=== PATIENT | male | born 1985 | race Caucasian/White ===

== ENCOUNTER 2016-09-21 13:06 | Emergency (ER) | payer MEDICAID ==
[2016-09-21 13:20] VITALS: BP 98/65; PULSE 64; RESP 16; TEMP 98.1; O2SAT 98
--- NOTE | 2016-09-21 13:31 | EDPHY ---
H & P Stated Complaint: Left great toe--discolored x 3 days--pt concerned for infection Time Seen by Provider: 09/21/16 13:23 HPI/ROS: Chief Complaint: Erythema lateral aspect left great toe HPI: The patient presents to the ED with mild erythema on the lateral aspect of his left great toe. The patient has a history of a plantar wart to this area. He noticed mild erythema over the past several days. He reports some mild associated paresthesia. The patient denies any numbness or additional neurologic complaints. Patient has no additional acute medical complaints. REVIEW OF SYSTEMS: Neuro: no headache, numbness, weakness Musculoskeletal: as above Skin: As above Source: Patient Exam Limitations: No limitations - Personal History Current Tetanus/Diphtheria Vaccine: Unsure Current Tetanus Diphtheria and Acellular Pertussis (TDAP): Unsure - Medical/Surgical History Hx Asthma: No Hx Chronic Respiratory Disease: No Hx Diabetes: No Hx Cardiac Disease: No Hx Renal Disease: No Hx Cirrhosis: No Hx Alcoholism: No Hx HIV/AIDS: No Hx Splenectomy or Spleen Trauma: No Other PMH: denies - Social History Smoking Status: Current every day smoker - Physical Exam Exam: General: No acute distress Left foot: Erythema noted to the lateral aspect of the left great toe, no significant fluctuance, area of hyperkeratosis consistent with wart Neuro: Patient reports decreased sensation to light touch throughout the left great toe and left 2nd toe. Vascular: Patient has normal capillary refill noted throughout the left lower extremity Constitutional: Initial Vital Signs Temperature (C) 36.7 C 09/21/16 13:17 Heart Rate 64 09/21/16 13:17 Respiratory Rate 16 09/21/16 13:17 Blood Pressure 98/65 L 09/21/16 13:17 O2 Sat (%) 98 09/21/16 13:17 O2 Delivery Mode Room Air Allergies/Adverse Reactions: No Known Allergies Allergy (Unverified 09/21/16 13:15) Home Medications: Medication Instructions Recorded Cephalexin [Keflex] 500 mg PO TID #21 cap 09/21/16 METHADONE HCL 09/21/16 Medical Decision Making ED Course/Re-evaluation: The patient will be started on Keflex for a very mild cellulitis. He is advised to follow up with our on-call laser beam color scanner operator for further evaluation. He is discharged home with customary aftercare instructions and return precautions. Differential Diagnosis: Differential diagnosis considered includes cellulitis, abscess, peripheral neuropathy Departure - Departure Disposition: Home, Routine, Self-Care Clinical Impression: Cellulitis of great toe, left, Paresthesia Condition: Good Instructions: Cellulitis (ED) Additional Instructions: 1. Please take antibiotics as prescribed. 2. Please follow up with a laser beam color scanner operator you have been referred to for further evaluation. 3. Please return to the ED for markedly worsening pain, redness, fever or other concerns. Referrals: Erlin Gleason DPM [Doctor of Podiatric Medicine] - As per Instructions
== END 2016-09-21 13:47 | disposition home or self-care (01) ==
DX: L03.032 Cellulitis of left toe (principal); R20.2 Paresthesia of skin; F17.200 Nicotine dependence, unspecified, uncomplicated

== ENCOUNTER 2016-10-22 21:02 | Emergency (ER) | payer MEDICAID ==
[2016-10-22 21:16] VITALS: TEMP 98.4; O2SAT 95
[2016-10-22] MEDS ORDERED: ONDANSETRON 4 MG/2 ML VIAL ONE (22:05)
[2016-10-22] MEDS ORDERED: ONDANSETRON 4 MG/2 ML VIAL IVP ONE (22:05)
[2016-10-22] MEDS ORDERED: NS 1,000 ML IV ONE (22:05)
[2016-10-22 22:17] LABS: % IMMATURE GRANULYOCYTES 0.4 % (0.0-1.1); ABSOLUTE IMMATURE GRANULOCYTES 0.04 10^3/uL (0.00-0.10); ADD DIFF? NO; ADD MORPH? NO; ADD SCAN? NO; ATYPICAL LYMPHOCYTE FLAG 10 (0-99); FRAGMENT RBC FLAG 0 (0-99); HEMATOCRIT 44.6 % (40.0-51.0); HEMOGLOBIN 15.1 g/dL (13.7-17.5); LEFT SHIFT FLG 0 (0-99); LIPEMIA HEMOLYSIS FLAG 90 (0-99); MEAN CELL HEMOGLOBIN 30.5 pg (27.9-34.1); MEAN CELL HEMOGLOBIN CONCENTR. 33.9 g/dL (32.4-36.7); MEAN CELL VOLUME 90.1 fL (81.5-99.8); MEAN PLATELET VOLUME 10.3 fL (8.7-11.7); PLATELET CLUMPS FLAG 0 (0-99); PLATELET COUNT 230 10^3/uL (150-400); RED BLOOD CELL COUNT 4.95 10^6/uL (4.40-6.38); RED CELL DISTRIBUTION WIDTH 12.8 % (11.5-15.2)
--- NOTE | 2016-10-22 22:28 | EDPHY ---
General Narrative: CHIEF COMPLAINT: Abdominal pain, vomiting HISTORY OF PRESENT ILLNESS: Patient complains of 3 days history of vomiting and generalized abdominal pain. [id number] symptoms. Constant duration. Worsening vomiting over the past 2 days. Not necessarily worse after eating but does vomit after eating. No fever. No chills. No trauma. No constipation or diarrhea. No changes in the caliber of the stool. No bloody stools or emesis. No over the counter medications tried. No recent travel or surgery. No history of abdominal surgeries but does know an abnormal CT scan 2 years ago in [place]. No other associated complaints or modifying factors. REVIEW OF SYSTEMS: Ten systems reviewed and are negative unless otherwise noted in the HPI PAST MEDICAL HISTORY: Previous opiate dependency now on methadone. PAST SURGICAL HISTORY: None SOCIAL HISTORY: Occasional smoker. No alcohol. No illicit substance. Lives here in [facility]. FAMILY HISTORY: Noncontributory EXAMINATION General Appearance: Alert, no distress Head: normocephalic, atraumatic Eyes: Pupils equal and round, no conjunctival pallor or injection ENT, Mouth: Mucous membranes moist widely patent Neck: Normal inspection, supple, non-tender Respiratory: Lungs are clear to auscultation Cardiovascular: Regular rate and rhythm. No murmur. Pulses intact distally Gastrointestinal: Abdomen is soft and mild generalized tenderness. No guarding. No rigidity. No distention. No CVA tenderness. Nonacute abdomen Neurological: A&O, nonfocal, normal gait Skin: Warm and dry, no rash no petechiae purpura Extremities: Nontender, no pedal edema Psychiatric: Mood and affect normal DIFFERENTIAL DIAGNOSES: Including but not limited to gastritis, enteritis, gastroenteritis, colitis, mesenteric adenitis, peptic ulcer, bowel obstruction, ileus MDM: 10:30 p.m. Vomiting x3 days with generalized abdominal pain. No point tenderness. No rigidity. Vital signs stable. Laboratory studies pending. I have ordered Protonix, IV fluid, IV Zofran and GI cocktail. I have ordered a plain abdominal x-ray . 11:35 p.m. Laboratory studies are within normal limits. Vital signs stable. Symptoms have improved. Plain film is unremarkable for any acute findings, specifically no air fluid levels. I have re-evaluated the patient. He is feeling comfortable with being discharged home. We discussed follow-up with primary care physician. He does have is an abnormal CT scan in the past that was nonacute and never followed up on. I will refer him to a GI physician for follow-up on this. He has ED precautions for worsening of all symptoms. He is discharged home with antiemetics and Protonix. Discharged home stable condition. - Diagnostics Imaging Results: Imaging Impressions Abdomen X-Ray 10/22/16 22:29 Impression: Negative exam. - History Smoking Status: Current every day smoker - Objective Vital Signs: Initial Vital Signs Temperature (C) 98.4 F 10/22/16 21:12 Heart Rate 52 L 10/22/16 21:12 Respiratory Rate 18 10/22/16 21:12 Blood Pressure 140/76 H 10/22/16 21:12 O2 Sat (%) 95 10/22/16 21:12 O2 Delivery Mode Room Air Allergies/Adverse Reactions: No Known Allergies Allergy (Unverified 09/21/16 13:15) Home Medications: Medication Instructions Recorded METHADONE HCL 09/21/16 Ondansetron Odt [Zofran Odt 4 mg 4 mg PO Q6 PRN #12 tab 10/22/16 (*)] Pantoprazole Sodium [Protonix] 40 mg PO DAILY #12 tablet. 10/22/16 Promethazine HCl [Phenergan 25mg 25 mg PO Q8 PRN #12 tab 10/22/16 (*)] Laboratory Results: Laboratory Results 10/22/16 22:00 10/22/16 22:00 10/22/16 10/22/16 22:00 22:00 WBC 10.13 10^3/uL H 10^3/uL (3.80-9.50) RBC 4.95 10^6/uL 10^6/uL (4.40-6.38) Hgb 15.1 g/dL g/dL (13.7-17.5) Hct 44.6 % % (40.0-51.0) MCV 90.1 fL fL (81.5-99.8) MCH 30.5 pg pg (27.9-34.1) MCHC 33.9 g/dL g/dL (32.4-36.7) RDW 12.8 % % (11.5-15.2) Plt Count 230 10^3/uL 10^3/uL (150-400) MPV 10.3 fL fL (8.7-11.7) Neut % (Auto) 69.3 % % (39.3-74.2) Lymph % (Auto) 20.9 % % (15.0-45.0) [place] % (Auto) 6.6 % % (4.5-13.0) Eos % (Auto) 2.1 % % (0.6-7.6) Baso % (Auto) 0.7 % % (0.3-1.7) Nucleat RBC Rel Count 0.0 % % (0.0-0.2) Absolute Neuts (auto) 7.02 10^3/uL H 10^3/uL (1.70-6.50) Absolute Lymphs (auto) 2.12 10^3/uL 10^3/uL (1.00-3.00) Absolute Monos (auto) 0.67 10^3/uL 10^3/uL (0.30-0.80) Absolute Eos (auto) 0.21 10^3/uL 10^3/uL (0.03-0.40) Absolute Basos (auto) 0.07 10^3/uL 10^3/uL (0.02-0.10) Absolute Nucleated RBC 0.00 10^3/uL 10^3/uL (0-0.01) Immature Gran % 0.4 % % (0.0-1.1) Immature Gran # 0.04 10^3/uL 10^3/uL (0.00-0.10) Sodium 140 mEq/L mEq/L (134-144) Potassium 3.7 mEq/L mEq/L (3.5-5.2) Chloride 98 mEq/L mEq/L (97-110) Carbon Dioxide 29 mEq/l mEq/l (22-31) Anion Gap 13 mEq/L mEq/L (8-16) BUN 19 mg/dL mg/dL (7-23) Creatinine 0.9 mg/dL mg/dL (0.7-1.3) Estimated GFR > 60 Glucose 86 mg/dL mg/dL (70-100) Calcium 9.5 mg/dL mg/dL (8.5-10.4) Total Bilirubin 1.0 mg/dL mg/dL (0.1-1.4) Conjugated Bilirubin 0.2 mg/dL mg/dL (0.0-0.5) Unconjugated Bilirubin 0.8 mg/dL mg/dL (0.0-1.1) AST 27 IU/L IU/L (17-59) ALT 43 IU/L IU/L (21-72) Alkaline Phosphatase 58 IU/L IU/L (38-126) Total Protein 7.1 g/dL g/dL (6.3-8.2) Albumin 4.5 g/dL g/dL (3.5-5.0) Lipase 121 IU/L IU/L (23-300) Medications Given: Discontinued Medications Sodium Chloride (Ns) 1,000 mls @ 0 mls/hr IV EDNOW ONE; Wide Open PRN Reason: Protocol Stop: 10/22/16 22:06 Last Admin: 10/22/16 22:07 Dose: 1,000 mls Ondansetron HCl (Zofran) 4 mg IVP EDNOW ONE Stop: 10/22/16 22:06 Last Admin: 10/22/16 22:06 Dose: 4 mg Departure - Departure Disposition: Home, Routine, Self-Care Clinical Impression: Epigastric pain Nausea & vomiting Qualifiers: Vomiting type: unspecified Vomiting Intractability: non-intractable Qualified Code(s): R11.2 - Nausea with vomiting, unspecified Condition: Good Instructions: Gastritis (ED), Epigastric Pain (ED) Additional Instructions: 1. Nausea medications as prescribed as needed 2. Clear liquid diet as discussed. Advance diet as tolerated slowly 3. Follow up with GI physician 4. ER precautions as discussed Referrals: NONE *PRIMARY CARE P,. [Primary Care Provider] - As per Instructions Eduard Hendricks MD [Medical Doctor] - As per Instructions Prescriptions: Ondansetron Odt [Zofran Odt 4 mg (*)] 4 mg PO Q6 PRN #12 tab PRN Reason: Nausea/Vomiting, Use 1st Pantoprazole Sodium [Protonix] 40 mg PO DAILY #12 tablet. Promethazine HCl [Phenergan 25mg (*)] 25 mg PO Q8 PRN #12 tab PRN Reason: Nausea/Vomiting, Use 1st
[2016-10-22] MEDS ORDERED: PANTOPRAZOLE SODIUM 40 MG VIAL IVP ONE (22:29)
[2016-10-22] MEDS ORDERED: MAG HYDROX/AL HYDROX/SIMETH 30 ML UDCUP PO ONE (22:29)
[2016-10-22] MEDS ORDERED: LIDOCAINE 2% VISCOUS 15 ML UDCUP PO ONE (22:29)
[2016-10-22 22:37] LABS: ALANINE AMINOTRANSFERASE 43 IU/L (21-72); ALBUMIN 4.5 g/dL (3.5-5.0); ALKALINE PHOSPHATASE 58 IU/L (38-126); ANION GAP 13 mEq/L (8-16); ASPARTATE AMINOTRANSFERASE 27 IU/L (17-59); BILIRUBIN-CONJUGATED 0.2 mg/dL (0.0-0.5); BILIRUBIN-UNCONJUGATED 0.8 mg/dL (0.0-1.1); CALCIUM 9.5 mg/dL (8.5-10.4); CARBON DIOXIDE 29 mEq/l (22-31); CHLORIDE 98 mEq/L (97-110); CREATININE 0.9 mg/dL (0.7-1.3); GLOMERULAR FILTRATION RATE > 60; GLUCOSE 86 mg/dL (70-100); POTASSIUM 3.7 mEq/L (3.5-5.2); SODIUM 140 mEq/L (134-144); TOTAL PROTEIN 7.1 g/dL (6.3-8.2)
[2016-10-22] MEDS: HYOSCYAMINE SULFATE 0.125 MG TAB PO ONE ×2 (23:33→23:35)
[2016-10-22 23:42] VITALS: BP 104/63; PULSE 53; RESP 16
== END 2016-10-22 23:51 | disposition home or self-care (01) ==
PROC: 3E0337Z Introduction of Electrolytic and Water Balance Substance into Peripheral Vein, Percutaneous Approach (ICD-10-PCS; principal; 2016-10-22)
DX: R10.13 Epigastric pain (principal); R11.2 Nausea with vomiting, unspecified; F17.200 Nicotine dependence, unspecified, uncomplicated; E86.9 Volume depletion, unspecified
CPT/HCPCS: 96374; J2405

== ENCOUNTER 2016-11-28 03:08 | Emergency (ER) | payer MEDICAID ==
--- NOTE | 2016-11-28 03:21 | EDPHY ---
H & P Stated Complaint: CROSS, Hx migraines HPI/ROS: HPI CHIEF COMPLAINT: Headache HISTORY OF PRESENT ILLNESS: This patient very pleasant 31-year-old male, does have significant past medical history for chronic pain and opiate dependency and takes methadone, additionally he takes gabapentin for anxiety, additionally has history of migraine headaches. Similar to this headache today. He states around 530pm developed a gradual onset not sudden-onset headache. Describes sharp stabbing at the vertex of his head. With associated nausea and light sensitivity however does not have any vomiting. He denies any neck pain. Denies chest pain or shortness of breath. Denies fever. Headache has persisted tonight. He did take Tylenol which did not help his pain. Decided come the emergency room for evaluation. Upon arrival here is complaining of 7/10 vertex headache. Sharp stabbing. Nonradiating. No neck pain. He does tell me this feels very similar to previous migraine headaches. Past Medical History: Anxiety, chronic pain, history of opiate dependency, migraine headaches Past Surgical History: No recent surgery Social History: Denies daily use of drugs alcohol tobacco. Family History: Noncontributory ROS REVIEW OF SYSTEMS: A comprehensive 10 point review of systems is otherwise negative aside from elements mentioned in the history of present illness. Exam Constitutional appears well nontoxic, triage nursing summary reviewed, vital signs reviewed, awake/alert. Eyes normal conjunctivae and sclera, EOMI, PERRLA. HENT normal inspection, atraumatic, moist mucus membranes, no epistaxis, neck supple/ no meningismus, no raccoon eyes. Respiratory clear to auscultation bilaterally, normal breath sounds, no respiratory distress, no wheezing. Cardiovascular rate normal, regular rhythm, no murmur, no edema, distal pulses normal. Gastrointestinal soft, non-tender, no rebound, no guarding, normal bowel sounds, no distension, no pulsatile mass. Genitourinary no CVA tenderness. Musculoskeletal no midline vertebral tenderness, full range of motion, no calf swelling, no tenderness of extremities, no meningismus, good pulses, neurovascularly intact. Skin pink, warm, & dry, no rash, skin atraumatic. Neurologic awake, alert and oriented x 3, AAOx3, moves all 4 extremities equally, motor intact, sensory intact, CN II-XII intact, normal cerebellar, normal vision, normal speech. Psychiatric normal mood/affect. Heme/Lymph/Immune no lymphadenopathy. Differential Diagnosis: Includes but is not limited to in a particular order, acute migraine headache, tension headache, cluster headache, intracranial bleed , meningitis Medical Decision Making: Plan for this patient IV establishment with IV fluid bolus, migraine cocktail, CT head without contrast for headache evaluation. And re-evaluate. Re-evaluation: 0503: Re-examination at this time patient resting comfortably no acute distress. CT scan head without contrast for headache is unremarkable for anything significant. Patient feeling much better after migraine medication. He does tell me his headache is 0/10 and is agreeable on discharge home. He does understand return emergency room if develops worsening headache fever vomiting questions or concerns. Recommend follow up with his primary care doctor. Return if worse. He understands. Source: Patient - Personal History Current Tetanus/Diphtheria Vaccine: Yes Current Tetanus Diphtheria and Acellular Pertussis (TDAP): Yes Tetanus Vaccine Date: 2014 - Medical/Surgical History Hx Asthma: No Hx Chronic Respiratory Disease: No Hx Diabetes: No Hx Cardiac Disease: No Hx Renal Disease: No Hx Cirrhosis: No Hx Alcoholism: No Hx HIV/AIDS: No Hx Splenectomy or Spleen Trauma: No Other PMH: wisdom teeth, headache, - Social History Smoking Status: Current every day smoker Constitutional: Initial Vital Signs Temperature (C) 36.6 C 11/28/16 03:12 Heart Rate 63 11/28/16 03:12 Respiratory Rate 16 11/28/16 03:12 Blood Pressure 116/74 11/28/16 03:12 O2 Sat (%) 94 11/28/16 03:12 O2 Delivery Mode Room Air Allergies/Adverse Reactions: No Known Allergies Allergy (Unverified 09/21/16 13:15) Home Medications: Medication Instructions Recorded METHADONE HCL 09/21/16 Gabapentin 11/28/16 Medical Decision Making - Data Points Laboratory Results: Laboratory Results 11/28/16 03:30 11/28/16 03:30 11/28/16 11/28/16 11/28/16 03:30 03:30 03:30 WBC 10.11 10^3/uL H 10^3/uL (3.80-9.50) RBC 4.77 10^6/uL 10^6/uL (4.40-6.38) Hgb 14.7 g/dL g/dL (13.7-17.5) Hct 41.7 % % (40.0-51.0) MCV 87.4 fL fL (81.5-99.8) MCH 30.8 pg pg (27.9-34.1) MCHC 35.3 g/dL g/dL (32.4-36.7) RDW 12.1 % % (11.5-15.2) Plt Count 192 10^3/uL 10^3/uL (150-400) MPV 9.8 fL fL (8.7-11.7) Neut % (Auto) 62.6 % % (39.3-74.2) Lymph % (Auto) 26.8 % % (15.0-45.0) [place] % (Auto) 5.1 % % (4.5-13.0) Eos % (Auto) 4.4 % % (0.6-7.6) Baso % (Auto) 0.8 % % (0.3-1.7) Nucleat RBC Rel Count 0.0 % % (0.0-0.2) Absolute Neuts (auto) 6.33 10^3/uL 10^3/uL (1.70-6.50) Absolute Lymphs (auto) 2.71 10^3/uL 10^3/uL (1.00-3.00) Absolute Monos (auto) 0.52 10^3/uL 10^3/uL (0.30-0.80) Absolute Eos (auto) 0.44 10^3/uL H 10^3/uL (0.03-0.40) Absolute Basos (auto) 0.08 10^3/uL 10^3/uL (0.02-0.10) Absolute Nucleated RBC 0.00 10^3/uL 10^3/uL (0-0.01) Immature Gran % 0.3 % % (0.0-1.1) Immature Gran # 0.03 10^3/uL 10^3/uL (0.00-0.10) PT 14.1 SEC SEC (12.0-15.0) INR 1.10 (0.83-1.16) Sodium 140 mEq/L mEq/L (134-144) Potassium 3.6 mEq/L mEq/L (3.5-5.2) Chloride 103 mEq/L mEq/L (97-110) Carbon Dioxide 27 mEq/l mEq/l (22-31) Anion Gap 10 mEq/L mEq/L (8-16) BUN 8 mg/dL mg/dL (7-23) Creatinine 1.0 mg/dL mg/dL (0.7-1.3) Estimated GFR > 60 Glucose 88 mg/dL mg/dL (70-100) Calcium 9.2 mg/dL mg/dL (8.5-10.4) Medications Given: Discontinued Medications Dexamethasone (Decadron Injection) 10 mg IVP EDNOW ONE Stop: 11/28/16 03:36 Last Admin: 11/28/16 03:41 Dose: 10 mg Diphenhydramine HCl (Benadryl Injection) 50 mg IVP EDNOW ONE Stop: 11/28/16 03:36 Last Admin: 11/28/16 03:39 Dose: 50 mg Sodium Chloride (Ns) 1,000 mls @ 0 mls/hr IV ONCE ONE; Wide Open PRN Reason: Protocol Stop: 11/28/16 03:36 Last Admin: 11/28/16 03:39 Dose: 1,000 mls Ketorolac Tromethamine (Toradol) 30 mg IVP EDNOW ONE Stop: 11/28/16 03:36 Last Admin: 11/28/16 03:39 Dose: 30 mg Metoclopramide HCl (Reglan Injection) 10 mg IVP EDNOW ONE Stop: 11/28/16 03:36 Last Admin: 11/28/16 03:41 Dose: 10 mg Departure - Departure Disposition: Home, Routine, Self-Care Clinical Impression: Migraine headache Qualifiers: Migraine type: other Status migrainosus presence: without status migrainosus Intractability: not intractable Qualified Code(s): G43.809 - Other migraine, not intractable, without status migrainosus Condition: Good Instructions: Acute Headache (ED) Additional Instructions: 1.Stay well-hydrated drink lots of fluids today. 2. Stay in a low stimulus environment. 3. Return emergency room if develops worsening headache fever or vomiting. Referrals: NONE *PRIMARY CARE P,. [Primary Care Provider] - As per Instructions
[2016-11-28] MEDS ORDERED: DEXAMETHASONE 10 MG/ML VIAL IVP ONE (03:35)
[2016-11-28] MEDS ORDERED: METOCLOPRAMIDE 10 MG/2 ML VIAL IVP ONE (03:35)
[2016-11-28] MEDS ORDERED: NS 1,000 ML IV ONE (03:35)
[2016-11-28] MEDS ORDERED: KETOROLAC 30 MG/1 ML SDV IVP ONE (03:35)
[2016-11-28 03:40] LABS: % IMMATURE GRANULYOCYTES 0.3 % (0.0-1.1); ABSOLUTE IMMATURE GRANULOCYTES 0.03 10^3/uL (0.00-0.10); ADD DIFF? NO; ADD MORPH? NO; ADD SCAN? NO; ATYPICAL LYMPHOCYTE FLAG 0 (0-99); FRAGMENT RBC FLAG 0 (0-99); HEMATOCRIT 41.7 % (40.0-51.0); HEMOGLOBIN 14.7 g/dL (13.7-17.5); LEFT SHIFT FLG 0 (0-99); LIPEMIA HEMOLYSIS FLAG 90 (0-99); MEAN CELL HEMOGLOBIN 30.8 pg (27.9-34.1); MEAN CELL HEMOGLOBIN CONCENTR. 35.3 g/dL (32.4-36.7); MEAN CELL VOLUME 87.4 fL (81.5-99.8); MEAN PLATELET VOLUME 9.8 fL (8.7-11.7); PLATELET CLUMPS FLAG 70 (0-99); PLATELET COUNT 192 10^3/uL (150-400); RED BLOOD CELL COUNT 4.77 10^6/uL (4.40-6.38); RED CELL DISTRIBUTION WIDTH 12.1 % (11.5-15.2)
[2016-11-28 03:50] LABS: INR 1.1 (0.83-1.16); PROTIME(PATIENT) 14.1 SEC (12.0-15.0)
[2016-11-28 03:52] LABS: ANION GAP 10 mEq/L (8-16); CALCIUM 9.2 mg/dL (8.5-10.4); CARBON DIOXIDE 27 mEq/l (22-31); CHLORIDE 103 mEq/L (97-110); GLOMERULAR FILTRATION RATE > 60; GLUCOSE 88 mg/dL (70-100); POTASSIUM 3.6 mEq/L (3.5-5.2); SODIUM 140 mEq/L (134-144)
[2016-11-28 05:23] VITALS: BP 103/61; PULSE 56; RESP 18; TEMP 97.7; O2SAT 95
== END 2016-11-28 05:22 | disposition home or self-care (01) ==
DX: G43.809 Other migraine, not intractable, without status migrainosus (principal); E86.9 Volume depletion, unspecified; F17.200 Nicotine dependence, unspecified, uncomplicated
CPT/HCPCS: 96374; J1100; J1200; J1885; J2765

== ENCOUNTER 2017-02-03 16:11 | Emergency (ER) | payer MEDICAID ==
[2017-02-03 16:18] VITALS: RESP 18; TEMP 97.7
--- NOTE | 2017-02-03 16:36 | EDPHY ---
H & P Stated Complaint: headache Source: Patient Exam Limitations: No limitations - Personal History Current Tetanus/Diphtheria Vaccine: Yes Current Tetanus Diphtheria and Acellular Pertussis (TDAP): Yes Tetanus Vaccine Date: 2014 - Medical/Surgical History Hx Asthma: No Hx Chronic Respiratory Disease: No Hx Diabetes: No Hx Cardiac Disease: No Hx Renal Disease: No Hx Cirrhosis: No Hx Alcoholism: No Hx HIV/AIDS: No Hx Splenectomy or Spleen Trauma: No Other PMH: wisdom teeth, headache, inrecovery but used speed 2 hours prior to arrival - Social History Smoking Status: Current every day smoker Time Seen by Provider: 02/03/17 16:36 HPI/ROS: HPI: This is a 31-year-old male who presents with Chief Complaint: Headache and pain Location: Generalized headache Quality: Aching, constant pain Duration: 1-2 hours prior to arrival Signs and Symptoms: No fever, no neck stiffness, no visual changes, no photophobia, no cough, + chest pain, no palpitations, no shortness of breath Timing: Sudden, constant Severity: Moderate Context: Patient has a history of opiate abuse, currently taking methadone since August, presents with sudden onset of generalized headache and posterior and lateral neck pain moderate in nature, nonradiating, accompanied by anterior chest discomfort after inhalation of methamphetamine with his friends. He reports that he inhaled methamphetamine and within 30 min his headache appear. Heme as he became anxious and then started to feel chest discomfort. Denies nausea/vomiting/diaphoresis/shortness of breath/palpitations. Modifying Factors: None Comment: ROS: see HPI Constitutional: No fever, no chills, no weight loss Eyes: No blurred vision Respiratory: No shortness of breath, no cough Cardiovascular: No chest pain Gastrointestinal: No nausea, no vomiting, no diarrhea Genitourinary: No dysuria Extremities: No myalgias Neurologic: No weakness, no numbness Skin: No rashes Hematologic: No bruising, no bleeding MEDICAL/SURGICAL/SOCIAL HISTORY: Medical history: wisdom teeth, migraine headache, opiate abuser in recovery but used speed 2 hours prior to arrival Surgical history: Denies Social history: Unemployed. CONSTITUTIONAL: Extremely anxious nontoxic appearing adult white male, awake and alert, no obvious distress HEENT: Atraumatic and normocephalic, PERRL, EOMI. Tympanic membranes clear. Nares patent without epistaxis. Oropharynx clear, no exudate and moist pink mucosa. Airway patent. No lymphadenopathy. NECK: Supple, no carotid bruits, flexion/extension/bilateral lateral rotation with good range of motion. no meningismus. Cardiovascular: Normal S1/S2, regular rate, regular rhythm, without murmur rub or gallop. PULMONARY/CHEST: Symmetrical and nontender. Clear to auscultation bilaterally. Good air movement. No accessory muscle usage. ABDOMEN: Soft, nondistended, nontender, no rebound, no guarding, no peritoneal signs, no masses or organomegaly. No CVAT. EXTREMITIES: 2/2 pulses, strength 5/5, no deformities, no clubbing, no cyanosis or edema. NEUROLOGICAL: no focal neuro deficits. GCS 15. Cranials 2 through 12 grossly intact. Speech clear. Ambulatory without deficits SKIN: Warm and dry, no erythema. no rash. Good capillary refill. (Zully Garcia) Constitutional: Initial Vital Signs Temperature (C) 36.5 C 02/03/17 16:14 Respiratory Rate 18 02/03/17 16:14 Blood Pressure 153/103 H 02/03/17 16:14 O2 Sat (%) 98 02/03/17 16:14 O2 Delivery Mode Room Air Allergies/Adverse Reactions: No Known Allergies Allergy (Unverified 09/21/16 13:15) Home Medications: Medication Instructions Recorded METHADONE HCL 09/21/16 Gabapentin 11/28/16 Medical Decision Making - Diagnostics EKG Interpretation: 12 lead EKG: Indication: Chest pressure Rhythm: Normal sinus rhythm, rate 74 beats per minute [place]: Normal Intervals: Normal QRS: Normal ST segments: Nonspecific changes T-waves: Nonspecific changes INTERPRETATION: No acute ischemic changes The 12 lead EKG was interpreted by myself and with attending. (Zully Garcia) ED Course/Re-evaluation: The patient was evaluated and managed by the physician's certified medical technician assistant. My cosignature indicates that I reviewed the chart and I agree with the findings and plan of care as documented. I am the secondary supervising physician. ( Aliya Ventura) IV medications, EKG and IV fluids ordered Patient is afebrile without systemic signs. No signs of meningitis. Blood pressure slightly elevated upon arrival but no tachycardia. 1740: Reassessed patient who reports that his headache is slightly decreasing but is requesting muscle relaxer for his neck discomfort. No signs of meningitis. Given p.o. Tylenol and p.o. Valium with adequate relief of pain No neurological symptoms/LOC/worst headache of life; head CT scan not indicated This patient was seen under the supervision of my secondary supervising physician. I evaluated care for this patient independently. Discussed this patient with Dr. Ventura who did not see the patient. (Zully Garcia) Differential Diagnosis: Differential diagnosis includes but is not limited to methamphetamine side effects, tension headache, pulmonary edema, acute coronary syndrome, migraine headache, tension headache. (Zully Garcia) - Data Points Medications Given: Discontinued Medications Acetaminophen (Tylenol) 1,000 mg PO EDNOW ONE Stop: 02/03/17 17:41 Last Admin: 02/03/17 17:47 Dose: 1,000 mg Dexamethasone (Decadron Injection) 8 mg IVP EDNOW ONE Stop: 02/03/17 16:41 Last Admin: 02/03/17 16:46 Dose: 8 mg Diazepam (Valium) 5 mg PO EDNOW ONE Stop: 02/03/17 17:41 Last Admin: 02/03/17 17:48 Dose: 5 mg Sodium Chloride (Ns) 1,000 mls @ 3,000 mls/hr IV EDNOW ONE Stop: 02/03/17 16:59 Last Admin: 02/03/17 16:47 Dose: 1,000 mls Ketorolac Tromethamine (Toradol) 15 mg IVP/IM EDNOW ONE Stop: 02/03/17 16:41 Last Admin: 02/03/17 16:47 Dose: 15 mg Promethazine HCl (Phenergan) 12.5 mg IVP EDNOW ONE Stop: 02/03/17 16:41 Last Admin: 02/03/17 16:47 Dose: 12.5 mg Departure - Departure Disposition: Home, Routine, Self-Care Clinical Impression: Methamphetamine use, Headache, drug induced, Methadone maintenance therapy patient Condition: Good Instructions: Acute Headache (ED), Methamphetamine Abuse (ED) Additional Instructions: Please abstain from using methamphetamine and methadone at the same time. Headache continues more than 24-48 hours; please follow-up with primary care provider for repeat evaluation. Referrals: [facility],. [Clinic] - As per Instructions
[2017-02-03] MEDS ORDERED: DEXAMETHASONE 4 MG/ML VIAL IVP ONE (16:40)
[2017-02-03] MEDS ORDERED: NS 1,000 ML IV ONE (16:40)
[2017-02-03] MEDS ORDERED: PROMETHAZINE HCL 25 MG/ML INJ IVP ONE (16:40)
[2017-02-03] MEDS ORDERED: KETOROLAC 15 MG/1 ML SDV IVP/IM ONE (16:40)
[2017-02-03 17:05] VITALS: BP 153/98; PULSE 81; O2SAT 97
--- NOTE | 2017-02-03 17:37 | CPEKG ---
Heart Rate: 74 RR Interval: 811 P-R Interval: 152 QRSD Interval: 106 QT Interval: 408 QTC Interval: 453 P [place]: 65 QRS [place]: 75 T Wave [place]: 38 EKG Severity - ABNORMAL ECG - EKG Impression: SINUS RHYTHM EKG Impression: ATRIAL PREMATURE COMPLEX EKG Impression: NONSPECIFIC T ABNORMALITIES, LATERAL LEADS Electronically Signed By: Aliya Ventura 03-Feb-2017 21:20:58
[2017-02-03] MEDS ORDERED: DIAZEPAM 5 MG TAB PO ONE (17:40)
[2017-02-03] MEDS ORDERED: ACETAMINOPHEN 500 MG TAB PO ONE (17:40)
== END 2017-02-03 18:33 | disposition home or self-care (01) ==
LOC: EDUNIT#
DX: G44.40 Drug-induced headache, not elsewhere classified, not intractable (principal); F15.20 Other stimulant dependence, uncomplicated; F11.20 Opioid dependence, uncomplicated; F17.200 Nicotine dependence, unspecified, uncomplicated
CPT/HCPCS: 96374; J1100; J1885; J2550